=== PATIENT | male | born 1965 | race Caucasian/White ===

== ENCOUNTER → 2016-09-29 | Outpatient (CLI) | payer OTHER ==
--- NOTE | 2016-09-29 11:10 | ECHOS ---
DATE OF SERVICE: 09/29/2016 AGE: 50Y SEX: M HT: 72 WT: 212 lbs. Protocol Manish: X Others: Stress Echo Stage: IV Dur. of Exercise: 10 minutes *Heart Rate Blood Pressure *Rest: 71 Rest: 111/78 * *Max. Achieved: 152 Maximum BP: 195/104 85% PMHR: 144 100% PMHR: 164 *METS: 11 INDICATIONS: Chest pain. MEDICATIONS: Baseline EKG shows sinus rhythm, normal axis, normal intervals. Patient exercised on Manish protocol for a total of 10 minutes achieving 11 METs; 85% of predicted maximal heart rate without chest pain or diagnostic ST segment depression. Occasional PVCs are noted during a stress test. CONCLUSION: 1. Excellent exercise tolerance. 2. Negative stress test by EKG criteria. 3. Negative stress echo.
== END ==
LOC: RADNMMAIN 09:33
PROVIDERS: ATTEND Family Medicine
DX: R07.9 Chest pain, unspecified (principal); Z82.41 Family history of sudden cardiac death
CPT/HCPCS: 93017; 93350

== ENCOUNTER 2017-04-22 16:37 | Emergency (ER) | payer OTHER ==
[2017-04-22 16:54] VITALS: BP 151/77; PULSE 71; RESP 18; TEMP 98.2
[2017-04-22] MEDS ORDERED: PROPARACAINE 0.5% OPHTH DROPS 15 ML BTL ONE (17:06)
[2017-04-22] MEDS ORDERED: PROPARACAINE 0.5% OPHTH DROPS 15 ML BTL LEFT EYE STA (17:08)
[2017-04-22] MEDS ORDERED: PROPARACAINE 0.5% OPHTH DROPS 15 ML BTL LEFT EYE SCH (17:15)
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
[2017-04-22] MEDS ORDERED: ERYTHROMYCIN 5 MG/GM OPHTH OINT 3.5 GM TUBE LEFT EYE SCH (20:00)
== END 2017-04-22 17:48 | disposition home or self-care (01) ==
LOC: EC 16:37
DX: S05.02XA Injury of conjunctiva and corneal abrasion without foreign body, left eye, initial encounter (principal); X58.XXXA Exposure to other specified factors, initial encounter
CPT/HCPCS: 99283

== ENCOUNTER 2018-01-20 20:38 | Emergency (ER) | payer OTHER ==
--- NOTE | 2018-01-20 21:40 | XR ---
EXAMINATION TYPE: XR chest 2V DATE OF EXAM: 01/20/2018 COMPARISON: 04/27/2013 HISTORY: 52-year-old male with pain TECHNIQUE: PA and lateral views FINDINGS: The heart is upper limits of normal in size. Mild elongation thoracic aorta. Mild diffuse interstitia l prominence. Strandy atelectasis or scarring at the left base. Probable tiny calcified granuloma per ipheral right lower lung. No consolidation or pleural effusion. IMPRESSION: Chronic changes without acute cardiopulmonary process.
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
[2018-01-20] MEDS ORDERED: HYDROcodone/APAP 5-325MG 1 EACH TAB PO STA (23:25)
[2018-01-20 23:30] VITALS: BP 176/92; PULSE 56; RESP 16; TEMP 98
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
== END 2018-01-20 23:42 | disposition home or self-care (01) ==
LOC: EC 20:38
DX: S22.32XA Fracture of one rib, left side, initial encounter for closed fracture (principal); Z87.891 Personal history of nicotine dependence; W18.39XA Other fall on same level, initial encounter
CPT/HCPCS: 71046; 99283

== ENCOUNTER 2018-07-22 12:26 | Emergency (ER) | payer OTHER ==
[2018-07-22 13:45] LABS: Basophils % (A) 0 %; Eosinophils # (A) 0.3 k/uL (0-0.7); Eosinophils % (A) 2 %; HCT 46.2 % (39.0-53.0); HGB 15.5 gm/dL (13.0-17.5); Lymphocytes # (A) 0.9 k/uL (1.0-4.8); Lymphocytes % (A) 6 %; MCH 32.3 pg (25.0-35.0); MCHC 33.6 g/dL (31.0-37.0); MCV 96.1 fL (80.0-100.0); Mean Platelet Volume 7.1; Monocytes # (A) 0.2 k/uL (0-1.0); Monocytes % (A) 2 %; Neutrophils # (A) 12.3 k/uL (1.3-7.7); Neutrophils % (A) 89 %; Platelet Count 307 k/uL (150-450); RBC 4.81 m/uL (4.30-5.90); RDW 13.1 % (11.5-15.5); WBC 13.8 k/uL (3.8-10.6)
[2018-07-22 13:58] LABS: ALT 21 U/L (21-72); AST 16 U/L (17-59); Albumin 4.6 g/dL (3.5-5.0); Alkaline Phosphatase 60 U/L (38-126); Anion Gap 10 mmol/L; Blood Urea Nitrogen 15 mg/dL (9-20); Carbon Dioxide 24 mmol/L (22-30); Chloride 110 mmol/L (98-107); Glucose 114 mg/dL (74-99); Potassium 4.5 mmol/L (3.5-5.1); Sodium 144 mmol/L (137-145); Total Bilirubin 0.6 mg/dL (0.2-1.3)
--- NOTE | 2018-07-22 15:50 | ED ---
Dizziness HPI - General Chief Complaint: Dizziness Stated Complaint: TED, Nauseated Time Seen by Provider: 07/22/18 15:11 Source: patient, RN notes reviewed, old records reviewed Mode of arrival: wheelchair Limitations: no limitations - History of Present Illness Initial Comments: Patient is a 52-year-old male who presents emergency Department today with complaints of dizziness, diaphoresis and vomiting episodes this morning. He reports he had a similar episode happened last Sunday as well while at work. Patient reports that he was not exerting himself when this happened. Patient states that he has a strong family history of heart disease. He does follow a get regular stress test. Last stress test was normal on September of last year. Patient reports that he has no chest pain or any significant difficulty breathing. He reports he did drink a vitamin water while he was in the waiting room for an extended period of time. He states that he is feeling somewhat better. - Related Data Previous Rx's Medication Instructions Recorded Hydrocodone/Acetaminophen [[place] 1 each PO Q6HR PRN #12 tab 01/20/18 5-325] Ondansetron Odt [Zofran Odt] 4 mg PO Q8HR PRN #12 tab 07/22/18 Allergies Allergy/AdvReac Type Severity Reaction Status Date / Time No Known Allergies Allergy Verified 07/22/18 12:47 Review of Systems ROS Statement: Those systems with pertinent positive or pertinent negative responses have been documented in the HPI. ROS Other: All systems not noted in ROS Statement are negative. Past Medical History Past Medical History: No Reported History History of Any Multi-Drug Resistant Organisms: None Reported Past Surgical History: No Surgical Hx Reported Additional Past Surgical History / Comment(s): vasectomy Past Psychological History: No Psychological Hx Reported Smoking Status: Former smoker Past Alcohol Use History: Rare Past Drug Use History: Marijuana General Exam - General Exam Comments Initial Comments: This is a 52-year-old male. Alert and oriented 3. Limitations: no limitations General appearance: alert, in no apparent distress Head exam: Present: atraumatic, normocephalic, normal inspection Eye exam: Present: normal appearance, PERRL, EOMI. Absent: scleral icterus, conjunctival injection, periorbital swelling ENT exam: Present: normal exam, mucous membranes moist Neck exam: Present: normal inspection. Absent: tenderness, meningismus, lymphadenopathy Respiratory exam: Present: normal lung sounds bilaterally. Absent: respiratory distress, wheezes, rales, rhonchi, stridor Cardiovascular Exam: Present: regular rate, normal rhythm, normal heart sounds. Absent: systolic murmur, diastolic murmur, rubs, gallop, clicks GI/Abdominal exam: Present: soft, normal bowel sounds. Absent: distended, tenderness, guarding, rebound, rigid Extremities exam: Present: normal inspection, full ROM, normal capillary refill. Absent: tenderness, pedal edema, joint swelling, calf tenderness Back exam: Present: normal inspection Neurological exam: Present: alert, oriented X3, CN II-XII intact Psychiatric exam: Present: normal affect, normal mood Skin exam: Present: warm, dry, intact, normal color. Absent: rash Course Vital Signs 07/22/18 07/22/18 07/22/18 12:45 16:30 16:55 Temperature 98.7 F 98.6 F 97 F L Pulse Rate 71 102 H 97 Respiratory 16 18 18 Rate Blood Pressure 153/98 206/102 O2 Sat by Pulse 97 94 L 97 Oximetry - Reevaluation(s) Reevaluation #1: 07/22/18 16:34 Patient is reevaluated this time. Sitting on his bed. He states he felt somewhat better. Patient states that he disposes of Afrin thought it was going to get sick again and vomited. The complains of no chest pain dizziness or shortness of breath. EKG Findings - EKG Comments: EKG Findings:: EKG performed at 1318 shows normal sinus rhythm, normal EKG noted. Ventricular rate of 73 bpm. AK interval is 162 ms. QT QTc is 380/427 ms. QRS duration is 90 ms. Medical Decision Making - Medical Decision Making 52 year old with nausea nad vomiting episode today at work. Patient has normal EKG, normal troponin. Normal CXR. Patient was feeling better on reevaluation. Tolerated fluids without vomiting. Discussed close follow up with PCP. - Lab Data Result diagrams: 07/22/18 13:21 07/22/18 13:21 Lab Results 07/22/18 07/22/18 07/22/18 Range/Units 13:14 13:21 13:21 WBC 13.8 H (3.8-10.6) k/uL RBC 4.81 (4.30-5.90) m/uL Hgb 15.5 (13.0-17.5) gm/dL Hct 46.2 (39.0-53.0) % MCV 96.1 (80.0-100.0) fL MCH 32.3 (25.0-35.0) pg MCHC 33.6 (31.0-37.0) g/dL RDW 13.1 (11.5-15.5) % Plt Count 307 (150-450) k/uL Neutrophils % 89 % Lymphocytes % 6 % Monocytes % 2 % Eosinophils % 2 % Basophils % 0 % Neutrophils # 12.3 H (1.3-7.7) k/uL Lymphocytes # 0.9 L (1.0-4.8) k/uL Monocytes # 0.2 (0-1.0) k/uL Eosinophils # 0.3 (0-0.7) k/uL Basophils # 0.0 (0-0.2) k/uL Sodium 144 (137-145) mmol/L Potassium 4.5 (3.5-5.1) mmol/L Chloride 110 H (98-107) mmol/L Carbon Dioxide 24 (22-30) mmol/L Anion Gap 10 mmol/L BUN 15 (9-20) mg/dL Creatinine 0.76 (0.66-1.25) mg/dL Est GFR (CKD-EPI)AfAm >90 (>60 ml/min/1.73 sqM) Est GFR (CKD-EPI)NonAf >90 (>60 ml/min/1.73 sqM) Glucose 114 H (74-99) mg/dL Calcium 10.0 (8.4-10.2) mg/dL Total Bilirubin 0.6 (0.2-1.3) mg/dL AST 16 L (17-59) U/L ALT 21 (21-72) U/L Alkaline Phosphatase 60 (38-126) U/L Troponin I (0.000-0.034) ng/mL Total Protein 8.0 (6.3-8.2) g/dL Albumin 4.6 (3.5-5.0) g/dL Urine Color Yellow Urine Appearance Turbid (Clear) Urine pH 8.0 (5.0-8.0) Ur Specific [place] 1.016 (1.001-1.035) Urine Protein Trace H (Negative) Urine Glucose (UA) Negative (Negative) Urine Ketones Negative (Negative) Urine Blood Negative (Negative) Urine Nitrite Negative (Negative) Urine Bilirubin Negative (Negative) Urine Urobilinogen <2.0 (<2.0) mg/dL Ur Leukocyte Esterase Negative (Negative) Ur Squamous Epith Cells 1 (0-4) /hpf Amorphous Sediment Moderate H (None) /hpf Urine Mucus Rare H (None) /hpf 07/22/18 Range/Units 13:21 WBC (3.8-10.6) k/uL RBC (4.30-5.90) m/uL Hgb (13.0-17.5) gm/dL Hct (39.0-53.0) % MCV (80.0-100.0) fL MCH (25.0-35.0) pg MCHC (31.0-37.0) g/dL RDW (11.5-15.5) % Plt Count (150-450) k/uL Neutrophils % % Lymphocytes % % Monocytes % % Eosinophils % % Basophils % % Neutrophils # (1.3-7.7) k/uL Lymphocytes # (1.0-4.8) k/uL Monocytes # (0-1.0) k/uL Eosinophils # (0-0.7) k/uL Basophils # (0-0.2) k/uL Sodium (137-145) mmol/L Potassium (3.5-5.1) mmol/L Chloride (98-107) mmol/L Carbon Dioxide (22-30) mmol/L Anion Gap mmol/L BUN (9-20) mg/dL Creatinine (0.66-1.25) mg/dL Est GFR (CKD-EPI)AfAm (>60 ml/min/1.73 sqM) Est GFR (CKD-EPI)NonAf (>60 ml/min/1.73 sqM) Glucose (74-99) mg/dL Calcium (8.4-10.2) mg/dL Total Bilirubin (0.2-1.3) mg/dL AST (17-59) U/L ALT (21-72) U/L Alkaline Phosphatase (38-126) U/L Troponin I <0.012 (0.000-0.034) ng/mL Total Protein (6.3-8.2) g/dL Albumin (3.5-5.0) g/dL Urine Color Urine Appearance (Clear) Urine pH (5.0-8.0) Ur Specific [place] (1.001-1.035) Urine Protein (Negative) Urine Glucose (UA) (Negative) Urine Ketones (Negative) Urine Blood (Negative) Urine Nitrite (Negative) Urine Bilirubin (Negative) Urine Urobilinogen (<2.0) mg/dL Ur Leukocyte Esterase (Negative) Ur Squamous Epith Cells (0-4) /hpf Amorphous Sediment (None) /hpf Urine Mucus (None) /hpf - Radiology Data Radiology results: report reviewed Normal CXr. Disposition Clinical Impression: Nausea & vomiting, Dizziness Disposition: HOME SELF-CARE Condition: Good Instructions: Dizziness (ED) Additional Instructions: Patient advised to drink plenty of fluids next 24-48 hours. Use nausea medicine as directed. Patient should've very close follow-up with her primary care doctor within the next 1-2 days. Return to emergency department if any alarming signs or symptoms occur. Prescriptions: Ondansetron Odt [Zofran Odt] 4 mg PO Q8HR PRN #12 tab PRN Reason: Nausea Is patient prescribed a controlled substance at d/c from ED?: No Referrals: Gary Kurtz MD [Primary Care Provider] - 1-2 days Time of Disposition: 16:35
--- NOTE | 2018-07-22 15:56 | XR ---
EXAMINATION TYPE: XR chest 2V DATE OF EXAM: 07/22/2018 COMPARISON: Prior chest x-ray January 20, 2018. HISTORY: Chest pain and difficulty in breathing. TECHNIQUE: Frontal and lateral views of the chest are obtained. FINDINGS: There is no focal air space opacity, pleural effusion, or pneumothorax seen. The cardiac silhouette size remains within normal limits. The osseous structures are intact. IMPRESSION: No acute cardiopulmonary process.
[2018-07-22] MEDS ORDERED: ONDANSETRON 4 MG ODT STARTER PACK 2 TAB BTL PO STA (16:29)
[2018-07-22 16:31] VITALS: RESP 18
[2018-07-22 16:40] LABS: Amorphous Sediment,Urine Moderate /hpf; Appearance,Urine Turbid (Clear); Bilirubin,Urine Negative (Negative); Blood,Urine Negative (Negative); Color,Urine Yellow; Glucose,Urine (UA) Negative (Negative); Ketones,Urine Negative (Negative); Leukocyte Esterase,Urine Negative (Negative); Mucus,Urine Rare /hpf; Nitrite,Urine Negative (Negative); Protein,Urine Trace (Negative); Specific Gravity,Urine 1.016 (1.001-1.035); Squamous Epithelial Cell,Urine 1 /hpf (0-4); Urobilinogen,Urine <2.0 mg/dL (<2.0)
[2018-07-22 16:57] VITALS: BP 206/102; PULSE 97; TEMP 97
== END 2018-07-22 16:55 | disposition home or self-care (01) ==
LOC: EC 12:26
DX: R42 Dizziness and giddiness (principal); R11.2 Nausea with vomiting, unspecified; R61 Generalized hyperhidrosis; Z87.891 Personal history of nicotine dependence
CPT/HCPCS: 36415; 93005; 80053; 84484; 85025; 81001; 71046; 99284; S0119